=== PATIENT | female | born 1955 | race Two or more races ===

== ENCOUNTER 2021-02-16 06:14 | Day surgery (SDC) | payer OTHER | END 2021-02-16 12:15 | disposition home or self-care (01) | LOC: AMB-ENDOS 06:14 | PROVIDERS: ATTEND Surgery | DX: K62.89 Other specified diseases of anus and rectum (principal); K64.8 Other hemorrhoids; Z20.822 Contact with and (suspected) exposure to COVID-19; Z12.11 Encounter for screening for malignant neoplasm of colon ==

== ENCOUNTER 2021-03-28 11:00 | Inpatient (IN) | payer OTHER ==
[~2021-03-28] VITALS: Ht 162.6 cm; Wt 95.3 kg
[2021-04-01] MEDS ORDERED: DICLOFENAC POTA50 MG (08:05)
[2021-04-01] MEDS ORDERED: BISOPROLOL-HCT1 EAC1 (08:05)
[2021-04-01] MEDS ORDERED: OMEPRAZOLE20 MG (08:05)
[2021-04-01] MEDS ORDERED: MAXIMUM D3325 MCG (08:05)
[2021-04-01] MEDS ORDERED: LISINOPRIL10 MG (08:05)
[2021-04-01] MEDS ORDERED: ABATINEX680 MG (08:05)
[2021-04-02] MEDS ORDERED: ULTRACET PO (12:28)
[2021-04-02] MEDS ORDERED: PROTONIX40 MG PO (12:28)
[2021-04-02] MEDS ORDERED: INTESTINEX680 M1 PO (12:28)
== END 2021-04-02 13:18 | disposition home or self-care (01) | DRG 334 ==
LOC: O/R 03-31 05:10 → SURH 03-31 05:10
PROVIDERS: ADMIT Surgery; ATTEND Surgery
PROC: 0DTP4ZZ Resection of Rectum, Percutaneous Endoscopic Approach (ICD-10-PCS; principal; 2021-03-31 07:00)
DX: K57.20 Diverticulitis of large intestine with perforation and abscess without bleeding (principal); R10.32 Left lower quadrant pain; K59.09 Other constipation

== ENCOUNTER 2021-04-15 09:26 | Emergency (ER) | payer OTHER ==
[~2021-04-15] VITALS: Ht 162.6 cm; Wt 90.7 kg
[~2021-04-15 09:26] MED LIST: ABATINEX680 MG; BISOPROLOL-HCT1 EAC1; DICLOFENAC POTA50 MG; INTESTINEX680 M1 PO; LISINOPRIL10 MG; MAXIMUM D3325 MCG; OMEPRAZOLE20 MG; PROTONIX40 MG PO; ULTRACET PO
[2021-04-15] MEDS ORDERED: PRILOSEC OTC20 MG PO (09:47)
[2021-04-15] MEDS ORDERED: ZIAC 2.5-6.251 EACH (09:48)
== END 2021-04-15 13:46 | disposition home or self-care (01) ==
LOC: ER 09:26
DX: T81.49XS Infection following a procedure, other surgical site, sequela (principal); B95.2 Enterococcus as the cause of diseases classified elsewhere